=== PATIENT | female | born 1985 | race Two or more races ===

== ENCOUNTER 2016-10-30 07:32 | Inpatient (IN) | payer SELFPAY ==
[~2016-10-30] VITALS: Ht 154.9 cm; Wt 62.7 kg
--- NOTE | ~2016-10-30 | ECH ---
Transthoracic Echocardiography Report (TTE) Demographics Patient Name CHANI PASCUAL, Date of Study 10/30/2016 ALIVIA Brar Patient Number [id number] Visit Number [id number] Date of 1985 Room Number 429 Gender Female Number Age 31 year(s) Referring Maegan Espinoza MD Containers Sales Representative Angela Ybarra Physician Jenni Ramesh MD [facility] Physician Interpreting Maegan Espinoza MD Lever Miller Physician Supervising Ordering Jenni Ramesh MD/P Physician Nurse Stress Painter Drum Conclusions Summary Technically good exam. The estimated left ventricular ejection fraction is 60-65%. The left atrium is mildly dilated by LA volume index measurement. There is trivial aortic regurgitation by color Doppler. Mild tricuspid regurgitation by color Doppler. There is mild pulmonary hypertension. The pulmonary pressure (RVSP) is 35 mmHg. No evidence of pericardial effusion. Procedure Type of Study TTE procedure:Echo Complete SF. Procedure Date Date: 10/30/2016 Start: 03:25 PM Technical Quality: Good visualization Indications:Chest pain and evaluate for pericardial effusion. Appropriate Use Criteria: 9 Height: 61 inches Weight: 133 pounds BSA: 1.59 m Rhythm: NSR HR: 71 bpm BP: 135/69 mmHg M-Mode/2D Measurements LV Diastolic Dimension: 5.08 cm LV Systolic Dimension: 3.43 cm LV Septum Diastolic: 0.99 cm LV PW Diastolic: 0.94 cm AO Root Dimension: 2.55 cm Cardiac Output: 5.66 l/min LA Dimension: 3.34 cm Cardiac Index: 3.56 l/min*m RV Diastolic Dimension: 3.22 cm LA volume index: 39 ml/m LVOT: 2.07 cm LVOT VTI: 23.69 cm RV Base: 3.7 cm LV Stroke volume: 79.68 ml RV Mid: 2.2 cm LV Stroke volume index: 50.11 ml/m TAPSE: 2.6 cm TDI-S': 18 cm/s Doppler Measurements AV Peak Velocity: 1.6 m/s MV Peak E-Wave: 0.93 m/s AV Peak Gradient: 10.24 mmHg MV Peak A-Wave: 0.66 m/s AV Mean Gradient: 5.15 mmHg MV E/A Ratio: 1.42 LVOT Peak Velocity: 1.12 m/s MV P1/2t: 55.7 msec AV Area (Continuity):2.45 cm MV Deceleration Time: 174 msec TR Velocity:2.85 m/s MV Area (PHT): 3.95 cm TR Gradient:32.49 mmHg PV Peak Velocity: 1.13 m/s Estimated RAP:3 mmHg PV Peak Gradient: 5.11 mmHg Estimated RVSP: 35 mmHg Estimated PASP: 35.49 mmHg E' Septal Velocity: 0.11 m/s A' Septal Velocity: 0.08 m/s E' Lateral Velocity: 0.14 m/s A' Lateral Velocity: 0.1 m/s RA Area: 14.74 cm Findings Left Ventricle Normal left ventricle size and function. Diastolic assessment reveals normal relaxation. Right Ventricle Normal right ventricle structure and function. Left Atrium The left atrium is mildly dilated by LA volume index measurement. Right Atrium Normal right atrial size. Mitral Valve Normal mitral valve structure and function. Mild mitral regurgitation by color Doppler. Aortic Valve Normal aortic valve structure and function. There is trivial aortic regurgitation by color Doppler. Tricuspid Valve Normal tricuspid valve structure and function. Mild tricuspid regurgitation by color Doppler. There is mild pulmonary hypertension. The pulmonary pressure (RVSP) is 35 mmHg. Pulmonic Valve Normal pulmonic valve structure and function. Pericardial Effusion No evidence of pericardial effusion. Miscellaneous Visualized portions of the aortic root and ascending aorta appear normal in size. Pleural Effusion No evidence of pleural effusion. Signature
--- NOTE | 2016-10-31 11:08 | ER ---
ADMIT: 10/30/2016 RM/LOC: 429 [facility] MR#: [id number] [address] [address] ALIVIA DHALIWAL [address] [place] [address] Emergency Room Report SEX: F AGE: 31 : 1985 DATE: 10/30/2016 ADDENDUM: A 31-year-old female coming with chest pain on the left side. EKG, CBC, chemistry, and troponin are all negative. A CT was done after we initially saw a chest x-ray which was negative. However, the CT did show pericardial effusion, unknown etiology. Evidently, she does have lupus according to her. The OB history showed O-type positive, negative antibody screen, serology nonreactive, rubella immune, HIV negative, hepatitis C surface antigen nonreactive, RPR nonreactive, and she has had three C sections. She was 4, para 3 at that time with two term deliveries and that was in 2009. At this time, I do not have any other documentation of lupus, but was told that. She speaks little Belarusian. We used an freelance interpreter/translator. I spoke with Dr. Arteaga. He wants her to be admitted for observation so they could follow up on her. CONDITION ON DISCHARGE: Fair. Henrry Johnston MD/ reema JOB #: [id number] CC: Henrry Arteaga MD, Attending Physician Henrry Arteaga MD, Family Physician
--- NOTE | 2016-10-31 16:12 | HP ---
ADMIT: 10/30/2016 RM/LOC: 429 [facility] MR#: [id number] [id number] [place] [place] [address] ALIVIA DHALIWAL [address] [place] [address] History and Physical SEX: F AGE: 31 : 1985 DATE OF SERVICE: CHIEF COMPLAINT: Chest pain. HISTORY OF PRESENT ILLNESS: This is a 31-year-old female from [facility]. She does not smoke tobacco. She does not do drugs. She does not drink. She is her is back in [facility]. She has three children here and one in [facility]. She is not employed. She does have chronic vocal cord dysfunction secondary to undetermined etiology. She has been seen multiple times at [facility] as well as locally by the surgery service. She does have a very quiet voice. Otherwise, she has some type of arthritis. She does not remember the diagnosis, but she told lupus, but she does not really have a diagnosis of lupus. She has an undetermined arthritis. She is in normal state of health. Approximately 20 days ago, she started to have chest pain. This has become progressively worse. Therefore, she came to the ER. She is evaluated by Dr. Henrry Johnston. She did have imaging without PE. Noted to have pericardial effusion. Did request my management and recommendations. We did decide to admit her and I received Cardiology consultation, further recommendations on management of her pericardial effusion as well as chest pain. She is evaluated at her bedside. She endorses the above history. She is accompanied by her sister. PAST MEDICAL HISTORY: 1. Arthritis. 2. Vocal cord dysfunction. PAST SURGICAL HISTORY: 1. Three laryngeal surgeries. 2. Three C-sections. MEDICATIONS: Tylenol. ALLERGIES: NO KNOWN MEDICAL ALLERGIES. FAMILY HISTORY: Mom and dad, unremarkable medical history. Three brothers and three sisters, unremarkable medical history. Children otherwise healthy. SOCIAL HISTORY: She does not drink or smoke. Does not do drugs. She is . She is not employed. PHYSICAL EXAMINATION: VITAL SIGNS: Blood pressure 149/83, pulse 72, respiratory rate is 22, temperature is 100.1, and 95% on room air. GENERAL: She is alert and oriented x3. In no acute distress. HEENT: Normocephalic and atraumatic. Extraocular movements intact. Pupils equally round and responsive to light. No nasal discharge. Her mucous membranes are moist. HEART: Regular rhythm and rate. ADMIT: 10/30/2016 RM/LOC: 429 [facility] MR#: [id number] [address] [address] ALIVIA DHALIWAL [address] [place] [address] History and Physical SEX: F AGE: 31 : 1985 LUNGS: Anterior lung son are clear to auscultation bilaterally. ABDOMEN: Soft and nontender. She has no clubbing, cyanosis, or edema. She does have some joint pain. LABORATORY DATA: White blood cells are 5.5, hemoglobin is 9.6, and platelets are 411. Chest x-ray, mild cardiomegaly, mild prominent interstitial markings with peribronchial cuffing. is negative. CT of the chest, no suspicious findings for PE. She does have pericardial effusion. Minimal interstitial markings, suggesting atelectatic or inflammatory change. Nonspecific mediastinal and bilateral axillary adenopathy. Sodium is 143, potassium 4.1, chloride is 112, bicarb is 23, BUN is 17, creatinine is 0.9, glucose 78, calcium 7.9, bilirubin is 0.3, total protein 6.1, albumin is 2, alkaline phosphatase is 109, AST is 22, ALT is 16. CK is 64, CK-MB is 103. Troponin is less than 0.015. ASSESSMENT AND PLAN: 1. Pericardial effusion. 2. Chest pain. 3. Arthritis. 4. Nonspecific lymphadenopathy. 5. Nonspecific interstitial markings. 6. Questionable inflammatory arthritis. I will go ahead and admit her to an observation status. We will go and order ADMIT: 10/30/2016 RM/LOC: 429 [facility] MR#: [id number] [address] [address] ALIVIA DHALIWAL [address] [place] [address] History and Physical SEX: F AGE: 31 : 1985 transthoracic echocardiogram or serial cardiac enzymes. I will request Cardiology to evaluate the patient, give us recommendations on the management of her pericardial effusion. With this nonspecific lymphadenopathy, I am going to go ahead and get some inflammatory markers as well as an LDH, etc., and also get anti-CCP, DAVID, and further workup of potential inflammatory arthritis. We will also request her records from [facility]. We placed her on SCDs and LEFTY hose. I discussed this plan with the patient, expressed understanding was given, had no further questions. This was all done through the aid of interpretive services. Entire communication was done through that services. Henrry Arteaga MD/ reema JOB #: [id number] CC: Henrry Arteaga, Attending Physician Henrry Arteaga, Family Physician
--- NOTE | 2016-11-05 11:52 | CO ---
ADMIT: 10/31/2016 RM/LOC: 429 [facility] MR#: [id number] [address] [address] ALIVIA DHALIWAL [address] [place] [address] Consultation SEX: F AGE: 31 : 1985 DATE OF CONSULTATION: 10/31/2016 ATTENDING PHYSICIAN: Henrry Arteaga CONSULTING PHYSICIAN: Renee Lowery MD REASON FOR CONSULT: Fever/pericardial effusion. Thank you, Dr. Arteaga, for the consult and involving me in this patient's care. HISTORY OF PRESENT ILLNESS: The patient is a 31-year-old woman, originally from [facility], who presented to the ER with complaint of chest pain on the left side since last 20 days. It got worse, hence, presented to the ER yesterday. She was seen by Dr. Christensen in [facility] and per the notes, she does have positive DAVID and was getting Plaquenil. She had a CTA chest yesterday, which did not show any pulmonary embolus and there was questionable pericardial effusion. An echo was done and there was no pericardial effusion noted on the echocardiogram. At present, she complains of left-sided chest pain and joint pains in her hands. She was noted to have fever of 100.1 in the hospital. She is originally from [facility] and immigrated here in 2005. She lives at home with her three kids and one of her sons had upper respiratory tract infection recently. She denies any recent travel. She does report photosensitivity to sun. PAST MEDICAL HISTORY: 1. Vocal cord dysfunction, status post multiple surgeries. 2. Systemic lupus erythematosus. 3. Arthritis. PAST SURGICAL HISTORY: Three C-sections. ALLERGIES: NO KNOWN MEDICAL ALLERGIES. CURRENT MEDICATIONS: Include aspirin 325 mg daily. FAMILY HISTORY: Denies any family history of diabetes mellitus, heart problems, or lupus. SOCIAL HISTORY: She lives at home with her three kids. Denies any smoking, alcohol, or recreational drug use. She does not work. Denies any pets. REVIEW OF SYSTEMS: A 10-point review of systems negative except as mentioned in HPI. PHYSICAL EXAMINATION: VITAL SIGNS: Current temperature is 98.9, T-max 100.1, heart rate 66, respirations 18, blood pressure 152/92, and 98% on room air. GENERAL: No acute distress. HEENT. Head is normocephalic and atraumatic. Extraocular movements intact. ADMIT: 10/31/2016 RM/LOC: 429 [facility] MR#: [id number] [address] [address] ALIVIA DHALIWAL [address] [place] [address] Consultation SEX: F AGE: 31 : 1985 LYMPH: No palpable anterior/posterior cervical or supraclavicular lymphadenopathy. CHEST: Decreased breath sounds at bases. CARDIOVASCULAR: S1 and S2 heard. Regular rate and rhythm. MUSCULOSKELETAL: Tenderness to palpation at the left chest. ABDOMEN: Soft, nontender, and nondistended. Active bowel sounds. SKIN: No rash noted on exposed skin. EXTREMITIES: No peripheral edema. PSYCH: Normal affect. Memory intact. LABORATORY DATA: Data review per HPI. Her CBC today shows white count of 4.2, hemoglobin 8.9, and platelets of 396, ESR is 105. CMP shows creatinine of 0.9, low albumin of 1.6. IMAGING: A CTA chest, shows no findings of pulmonary embolus, minimal increased markings in the lingula. Nonspecific mediastinal and bilateral axillary adenopathy. ASSESSMENT AND PLAN: 1. Fever. 2. Positive antinuclear antibody per outside notes and was on Plaquenil with diagnosis of systemic lupus erythematosus. Rheumatology consult is pending. She denies any cough at this time, however, she does have some night sweats. The symptoms are likely secondary to systemic lupus erythematosus flare. We will defer treatment to Rheumatology. She is currently in airborne precautions and QuantiFERON was ordered. She is unable to give any sputum. Okay to discontinue airborne precautions once the QuantiFERON is resulted. Given the recent sick contact, I will also like to do Parvovirus B19 antibodies. There is no other evidence of any infection at this time, and I do not recommend any antibiotics at this time. Thank you for the consult and I will continue to follow the patient peripherally. Renee Lowery MD/ reema JOB #: [id number] CC: Henrry Arteaga, Attending Physician Henrry Arteaga, Family Physician
[2016-11-06] MEDS ORDERED: PLAQUENIL DPS200 MG PO (10:08)
[2016-11-06] MEDS ORDERED: TYLENOL DPS325 MG PO (10:08)
[2016-11-06] MEDS ORDERED: PROTONIX40 MG PO (10:08)
[2016-11-06] MEDS ORDERED: SYNTHROID DP0.075 MG PO (10:08)
[2016-11-06] MEDS ORDERED: ASA325 MG PO (10:08)
[2016-11-06] MEDS ORDERED: ULTRAM DPS50 MG PO (10:09)
[2016-11-06] MEDS ORDERED: ZOFRAN4 MG PO (10:09)
[2016-11-06] MEDS ORDERED: DELTASONE DPS10 MG PO (10:09)
[2016-11-06] MEDS ORDERED: ZANAFLEX2 MG PO (10:09)
--- NOTE | 2016-11-12 16:10 | CO ---
ADMIT: 10/31/2016 RM/LOC: 429 [facility] MR#: [id number] [address] [address] ALIVIA DHALIWAL [address] [place] [address] Consultation SEX: F AGE: 31 : 1985 DATE OF CONSULTATION: 10/31/2016 ATTENDING PHYSICIAN: Henrry Arteaga MD CONSULTING PHYSICIAN: Sherri Conway MD REASON FOR HEMATOLOGY CONSULTATION: Anemia and leukopenia. HISTORY AND PHYSICAL: Ms. Justin is a 31-year-old, woman, who does not speak Cambodian. She had a family member who gave the translation that she was admitted because of abdominal pain. They were trying to rule out TB and infection. She also has a history of systemic lupus. She has not seen any doctor for long time, now admitted because of the abdominal pain, and found to have anemia and leukopenia, therefore, Hematology was consulted to evaluate. Denies any fever. Denies any nausea or vomiting. She is on TB infection precautions and on TB precaution. When I talked to the patient, she denies any nausea or vomiting, has not seen a doctor for many years, so she does not about a lot of problems. PAST MEDICAL HISTORY: 1. Arthritis. 2. Systemic lupus. 3. Vocal cord dysfunction. MEDICATIONS: Only Tylenol. She does not see any doctor. ALLERGIES: NO KNOWN DRUG ALLERGIES. FAMILY HISTORY: Unremarkable. SOCIAL HISTORY: She denies any drinking. Denies any smoking. REVIEW OF SYSTEMS: GENERAL: Not in acute distress. CARDIOVASCULAR: No chest pain. RESPIRATORY: No shortness of breath. ENDOCRINOLOGY: No polyuria, no polydipsia. INFECTION: No fever. PHYSICAL EXAMINATION: VITAL SIGNS: Temperature 97.8, pulse 70, respirations 16, blood pressure 151/76. HEENT: Normocephalic and atraumatic. LUNGS: Clear. HEART: S1 and S2 heard. Regular rate and rhythm. ABDOMEN: Soft, nontender, nondistended. Positive bowel sounds. EXTREMITIES: No edema. NEUROLOGICAL: Awake, alert, and oriented x3. No focal neurological deficits. INFECTION: Or fever. LABORATORY DATA: WBC is 4.2, hemoglobin 8.9, platelets 396. Normal LFTs and ADMIT: 10/31/2016 RM/LOC: 429 [facility] MR#: [id number] [address] [address] CHANI PASCUAL MAYADESTINI Brar [address] [place] [address] Consultation SEX: F AGE: 31 : 1985 normal kidney. IMPRESSION AND RECOMMENDATIONS: Ms. Justin is a 31-year-old female with history of systemic lupus, was admitted due to abdominal pain. Currently, she has been ruled out for tuberculosis. Hematology consulted for leukopenia and anemia. 1. Normocytic anemia and mild leukopenia, likely from systemic lupus. I did not see any signs of iron deficiency, and did not see any signs of vitamin B12 or folic acid deficiency, but in any way, I will get an anemia workup, LDH, folic acid, B12 level, as well as iron profile. It just looks like she chronic anemia of disease from her systemic lupus. If her hemoglobin does not recover, and her white blood cell does not recover in the future, she may need bone marrow aspiration and biopsy to further evaluate the cause. Otherwise, I will continue to treat the infection. Continue to tuberculosis, for that matter Infection Disease Dr. Lowery is on the case. I will also check her haptoglobin level as well as retic count. I will check her tomorrow to follow the results. I answered all her questions and concerns. She had a family member present there. One of her nephew spoke Cambodian and helped to translate the conversation. Thank you for the consultation and the opportunity in taking care of your patient. Sherri Conway MD/ reema JOB #: [id number] CC: Henrry Arteaga MD, Attending Physician Henrry Arteaga MD, Family Physician
--- NOTE | 2016-11-17 15:08 | CO ---
ADMIT: 10/30/2016 RM/LOC: 429 [facility] MR#: [id number] [address] [address] ALIVIA DHALIWAL [address] [place] [address] Consultation SEX: F AGE: 31 : 1985 DATE OF CONSULTATION: 10/30/2016 ATTENDING PHYSICIAN: Henrry Arteaga CONSULTING PHYSICIAN: Crista Issa MD REASON FOR CONSULTATION: Pericardial effusion. HISTORY OF PRESENT ILLNESS: Nhan Lua is a pleasant 31-year-old white female, whom we are asked to consult on at the request of Dr. Arteaga for the problem of pericardial effusion noted on CT scan. She noted over the past 20 days she has been having some severe chest pain, very sharp and pinpoint in nature, located under the left breast, kind of radiate up into the jaw and to the neck as well. It is made worse with movement, not exertion, particularly if she takes her deep breath it will improve though. She has also had some fevers, although she denying any chills or sweating. She had no weight gain or weight loss. No nausea or vomiting. PAST MEDICAL HISTORY: Includes some upper GI issues with multiple surgeries performed in [place] at the past. Unknown per her sister, who gives most of the history. MEDICATIONS: Reviewed. She is on none. ALLERGIES: NONE KNOWN. FAMILY HISTORY: There is no family history of premature coronary artery disease. SOCIAL HISTORY: She is a nonsmoker. She has had four children. REVIEW OF SYSTEMS: A full 10-point review of systems was obtained and deemed to be negative except per the pertinently dictated positives in the HPI. PHYSICAL EXAMINATION: VITAL SIGNS: Her blood pressure is 149/83 with a temp of 100.1, her pulse is 72 and regular. Her weight is 133 pounds. GENERAL: She is a pleasant well-nourished, well-developed white [place] female, in no acute distress. She is alert and oriented x3. NECK: Shows brisk carotid upstrokes. No JVD or bruit. CHEST: Clear. HEART: Regular. ABDOMEN: Soft. EXTREMITIES: Show no cyanosis, clubbing, or edema. MUSCULOSKELETAL: Normal. NEUROLOGIC: Normal. SKIN: Nathalie, warm, and dry. LABORATORY AND ANCILLARY DATA: Echocardiogram shows no evidence of pericardial effusion. CT scan shows no evidence of PE. Chest x-ray appears ADMIT: 10/30/2016 RM/LOC: 429 [facility] MR#: [id number] [address] [address] ALIVIA DHALIWAL [address] [place] [address] Consultation SEX: F AGE: 31 : 1985 normal. Troponin is negative. EKG shows no evidence of pericarditis. Normal sinus rhythm. Creatinine is 0.9. CK-MB were normal. Hemoglobin is 9.6 and white blood cell count of 5.5. ASSESSMENT AND PLAN: 1. Atypical chest pain. 2. Fever. Echo was reviewed. There is no evidence of pericardial effusion. This is classic over-read by Radiology. I even reviewed the CAT scan. This is more likely normal pericardial fluid. Her EKG shows nothing to suggest pericarditis, I think this is noncardiac in nature. Regarding the pain, it is probably musculoskeletal or neurologic. Continue to monitor her. See no need for ischemic evaluation at this time. Continue workup per primary care and ID. CMaru Issa MD/ reema JOB #: [id number] CC: Henrry Arteaga, Attending Physician Henrry Arteaga, Family Physician
--- NOTE | 2016-11-28 12:24 | CO ---
ADMIT: 10/31/2016 RM/LOC: [facility] MR#: [id number] [id number] [place], [place] [address] ANDREZ DHALIWALGadiel Brar [address] [place] [address] Consultation SEX: F AGE: 31 : 1985 ATTENDING PHYSICIAN: Henrry Arteaga CONSULTING PHYSICIAN: Saen Christensen MD HISTORY OF PRESENT ILLNESS: Thank you for having me to see Ms. Nhan Lua. As you know, she is a very nice 31-year-old woman, originally from [facility], who I used to see at the [facility]. She has history of systemic lupus, manifested as positive DAVID, double-stranded DNA, arthritis and leukopenia. From the clinic note that was faxed over from there, it looks like I last saw her about a year ago. She says she has been out of Plaquenil and Mobic for about that long. She started having chest pain, radiating to the left side, about 3 weeks ago. The pain has been getting steadily worse. She eventually sought care at the [facility] and was admitted. An initial CT scan of the chest was negative for pulmonary embolus but did appear to show a pericardial effusion. Followup echocardiogram indicated that was trivial. The chest pain continues despite being started on prednisone. She has also developed a headache and fever. Dr. Lowery thought that this was most likely due to her lupus. MRI is pending, but since she is in droplet isolation, a QuantiFERON test is pending and she cannot get the MRI until that comes back. PAST MEDICAL HISTORY: significant for the lupus and high-risk medication use. She is 4, para 4. She has also had a series of 3 vocal cord surgeries over the last few years-one at [place] and 2 in [place]. However, she still has quite a bit of hoarseness. CURRENT MEDICATION: 1. Aspirin 325 mg a day. 2. Prednisone 40 mg a day. 3. Synthroid 0.075 mg daily. 4. Colace b.i.d. p.r.n. 5. Maalox p.r.n. 6. Tylenol p.r.n. 7. She was also just started on Zofran for nausea. 8. She did receive baseline dose of IV Solu-Medrol at first. REVIEW OF SYSTEMS: HEENT: She does have some dry mouth but no sicca symptoms. SKIN: No obvious rashes. HEART: No history of hypertension or other previous heart problems. RESPIRATORY: No asthma, bronchitis, or pneumonia. She does have the left-sided chest pain, seems to radiate down below the left breast and under the lateral ribs. It is a little bit worse with deep breath. GI: No history of ulcers, diarrhea, or constipation. She does have quite a bit of nausea. No diarrhea or constipation. No blood in the stools. /REHAB THERAPY MANAGER: She is 4, para 4. No history of bladder or kidney problems. ENDOCRINE: She was recently found to have markedly-elevated TSH of 9.3 (normal less than 3.8). Dr. Medraon started her on thyroid supplement this weekend. No diabetes. ADMIT: 10/31/2016 RM/LOC: [facility] MR#: [id number] [address] [place] [id number] ALIVIA DHALIWAL [address] [place] [address] Consultation SEX: F AGE: 31 : 1985 PHYSICAL EXAMINATION: GENERAL: She is a pleasant young [facility] woman. She is awake, alert and a good historian. 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 VITAL SIGNS: Blood pressure 154/78, temperature 98.7, pulse 63, respirations 14. HEENT: Pupils are equal, round and reactive to light. Sclerae and conjunctivae are unremarkable. Oral mucosa was pink and moist without lesions. HEART: Regular without murmur or audible or palpable rub. LUNGS: Clear to auscultation and resonant to percussion without obvious rubs, rales, or wheezes. ABDOMEN: Nontender. MUSCULOSKELETAL: She had good range of motion about the shoulders, elbows, and wrists. Fingers were not swollen or tender. She was mildly tender to palpation across the metatarsal phalangeal joints but there was no synovitis. Ankles were not swollen or tender. She was able to sit up in the bed without assistance. LABORATORY: CBC revealed white count of 8.4, hemoglobin 9.0, platelets 462,000. Sedimentation rate was 75 mm/hour. CCP antibody is negative. ANCA screen is still pending. IMPRESSION: 1. Chest wall pain. This is somewhat pleuritic. Initial CT appeared to show an effusion but that was not confirmed on echocardiogram. 2. History of systemic lupus, manifested as positive DAVID, double-stranded DNA antibodies, arthritis, and leukopenia. 3. Nausea. 4. Headache. 5. Hypothyroidism-recently diagnosed. PLAN: I will have her resume the Plaquenil right away. She is on 40 mg of prednisone and can stay on that for another day or two, but it should gradually be tapered to 10 mg over the next week or so. I will leave her on that dose until I see her in the [facility] in followup. As I mentioned, we are still awaiting the QuantiFERON and MRI of her head and the ANCA screen. ADMIT: 10/31/2016 RM/LOC: 429 [facility] MR#: [id number] [facility] [address] [address] AL[address] DHAL[address]WAL [address] [place] [address] Consultation SEX: F AGE: 31 : 1985 Thanks for having me to see this nice lady. Sincerely, Sean Christensen MD/ reema JOB #: [id number] CC: Henrry Arteaga, Attending Physician Henrry Arteaga, Family Physician MD Henrry Jaramillo MD Purva Gumaste, MD . [facility]
--- NOTE | 2016-12-03 08:30 | DS ---
ADMIT: 10/31/2016 RM/LOC: 429 [facility] MR#: [id number] [address] [address] WILDEALIVIA PATTERSON [address] [place] [address] Discharge Summary SEX: F AGE: 31 : 1985 ADMISSION DATE: 10/31/2016 DISCHARGE DATE: 11/05/2016 CONSULTATIONS: 1. Crista Issa MD, Cardiology. 2. Sean Christensen MD, Rheumatology. 3. Renee Lowery MD, Infectious Disease. 4. Sherri Conway MD, Hematology/Oncology. FINAL DIAGNOSES: 1. Trivial pericardial effusion. 2. Pancytopenia. 3. Febrile illness. 4. Chest pain. 5. Lupus flare. 6. Chronic arthropathy and musculoskeletal pain. REASON FOR ADMISSION: Please see H and P. However, admitted with chest pain and pericardial effusion on CT. HOSPITAL COURSE: Admitted to the service of [facility] under the care of myself, Henrry Arteaga MD. Receives various consultations secondary to fever as well as pericardial effusion. Did receive Cardiology as well as Infectious Disease consultation. Also seen by Dr. Conway secondary to some hematology findings as well as Dr. 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 She did improve nicely throughout her hospitalization with improvement of her laboratories and discharged to home to follow up with myself in clinic as well as Dr. Christensen at [facility]. DISPOSITION: Home. ADMIT: 10/31/2016 RM/LOC: 429 [facility] MR#: [id number] [address] [address] ALIVIA DHALIWAL [address] [place] [address] Discharge Summary SEX: F AGE: 31 : 1985 DISCHARGE CONDITION: Stable. DISCHARGE MEDICATIONS: See the medication reconciliation, it is reviewed and accurate. DISCHARGE INSTRUCTIONS: Discharge to home. Follow up with Dr. Arteaga as noted on discharge paperwork, Dr. Christensen, and [facility] for Rheumatology and also other consultative services per their discretion. I discussed the plan with the patient, expressed understanding, was in agreement, and had no further questions. All communication is through power lineman technician. Henrry Arteaga MD/ kathy JOB #: [id number] CC: Henrry Arteaga MD, Attending Physician Henrry Arteaga MD, Family Physician
== END 2016-11-05 11:39 | disposition home or self-care (01) | DRG 546 ==
LOC: ER 07:32 → 4PCU 12:30
PROVIDERS: ADMIT Internal Medicine
PROC: 3E0234Z Introduction of Serum, Toxoid and Vaccine into Muscle, Percutaneous Approach (ICD-10-PCS; principal; 2016-11-05)
DX: M32.9 Systemic lupus erythematosus, unspecified (principal); D61.818 Other pancytopenia; N20.0 Calculus of kidney; E03.9 Hypothyroidism, unspecified; J38.3 Other diseases of vocal cords; M19.90 Unspecified osteoarthritis, unspecified site; R59.1 Generalized enlarged lymph nodes; T37.8X6A Underdosing of other specified systemic anti-infectives and antiparasitics, initial encounter; Z23 Encounter for immunization